=== PATIENT | female | born 1970 | race Caucasian/White ===

== ENCOUNTER 2022-12-04 12:08 | Emergency (ER) | payer OTHER, SELFPAY ==
--- NOTE | ~2022-12-04 | XR_ITS ---
EXAMINATION: XR chest 2V 12/04/2022 12:36 INDICATION: Cough. Pneumonia. PROCEDURE: 2 view chest COMPARISON: No prior studies FINDINGS: The lungs are clear. The cardiomediastinal silhouette is within normal limits. There are no pleural effusions. There is no pneumothorax suspected. There is a calcified granuloma of the rig ht lung base. IMPRESSION: 1: NO ACUTE CARDIOPULMONARY DISEASE. Reviewed, dictated and finalized at location B.
[2022-12-04 12:17] VITALS: BP 147/79; PULSE 91; RESP 16; TEMP 36.6; O2SAT 100
--- NOTE | 2022-12-04 12:52 | ED.URI ---
HPI - URI/Sore Throat General Chief Complaint: Upper Respiratory Infection Stated Complaint: Cough Source: patient Mode of arrival: ambulatory Limitations: no limitations History of Present Illness HPI Narrative: 52-year-old female presents to [facility] with complaints of harsh nonproductive cough for the last 7-10 days. Patient reports that 2 of her co-workers recently were diagnosed with pneumonia and 1 co-worker was diagnosed with bronchitis. Patient is a nonsmoker. Patient denies recent travel. Patient has not tried taking any [id number] medications for her symptoms. Patient reports that she has been drinking warm tea with honey with minimal relief. Patient denies fever, body aches, chills, shortness of breath or wheezing. Patient reports that she is concerned as her 1st grandchild is being born next week and she does not want to be ill. MD elicited complaint: cough Onset (ago): day(s) (-) Consistency: intermittent Severity: mild Able to tolerate fluids by mouth: Yes Exacerbating factors: nothing Relieving factors: nothing Context: sick contacts Associated symptoms: denies other symptoms Treatments prior to arrival: none Related Data Home Medications Medication Instructions Recorded Confirmed bupropion HCl 150 mg 24 hr tablet, 300 mg PO DAILY 12/04/22 12/04/22 extended release Allergies Allergy/AdvReac Type Severity Reaction Status Date / Time No Known Allergies Allergy Verified 12/04/22 12:09 Review of Systems Constitutional: Constitutional: Denies chills, Denies fatigue, Denies fever(s) and Denies weakness ENT: Denies dizziness, Denies epistaxis, Denies nasal congestion and Denies sore throat Respiratory: Respiratory: Reports cough, Denies dyspnea and Denies wheezing Gastrointestinal: Gastrointestinal: Denies diarrhea, Denies nausea and Denies vomiting Musculoskeletal: Musculoskeletal: Denies arthralgias and Denies joint swelling Integumentary/Breasts: Skin/Breast: Denies rash and Denies skin ulcer Neurologic: Denies dizziness, Denies syncope and Denies headache(s) PMFSH Comments At time of signature, I agree with nursing past medical, surgical, social and family history. There is no relevant family history pertinent to the presenting complaint. Exam Const: General: healthy appearing and no acute distress Nutritional Appearance: well nourished Orientation/consciousness: patient oriented x3 Limitations: no limitations HENMT: Head: normal to inspection Ears: external ears normal and TM's normal bilaterally Face/Nose/Sinus: Normal external nose present Face and sinus: normal facial exam Mouth: Yes Normal oral and palatal mucosa present, Yes lip normal and Yes moist mucous membranes Teeth and gingiva: dentition normal Throat: posterior oropharynx normal and uvula midline Eyes: Conjunctivae: conjunctivae normal Neck: Neck: normal visual inspection Resp: Effort & Inspection: normal respiratory effort and not labored Auscultation: clear to auscultation bilaterally, no crackles, no rales, no rhonchi, no wheezes and breath sounds present Cardio: Rate: regular rate Rhythm: regular rhythm Heart sounds: no murmurs Skin: General skin exam: normal color Rashes: no rashes Wounds: no wounds Neuro: General: patient oriented x3 Psych: Mental Status: mental status grossly normal Affect: normal affect Attitude: cooperative Course Course Level of Care: Express Care Visit Vital Signs Vital signs: Vital Signs Temperature 36.6 C 12/04/22 12:17 Pulse Rate 91 12/04/22 12:17 Respiratory Rate 16 12/04/22 12:17 Blood Pressure 147/79 H 12/04/22 12:17 Pulse Oximetry 100 12/04/22 12:17 Oxygen Delivery Room Air 12/04/22 12:17 Temperature 36.6 C 12/04/22 12:17 Pulse Rate 91 12/04/22 12:17 Respiratory Rate 16 12/04/22 12:17 Blood Pressure 147/79 H 12/04/22 12:17 Pulse Oximetry 100 12/04/22 12:17 Oxygen Delivery Room Air 12/04/22 12:17
== END 2022-12-04 12:59 | disposition home or self-care (01) ==
PROVIDERS: Emergency Provider Nurse Practitioner Family; PCP Nurse Practitioner Family
DX: J06.9 Acute upper respiratory infection, unspecified (principal)
CPT/HCPCS: 71046; 99213; G0463